=== PATIENT | female | born 1985 | race Caucasian/White ===

== ENCOUNTER 2017-04-12 05:10 | Emergency (ER) | payer OTHER | END 2017-04-12 07:28 | disposition home or self-care (01) | LOC: ER 05:10 | DX: S16.1XXA Strain of muscle, fascia and tendon at neck level, initial encounter (principal); F41.9 Anxiety disorder, unspecified; Z90.49 Acquired absence of other specified parts of digestive tract; Z91.018 Allergy to other foods; X58.XXXA Exposure to other specified factors, initial encounter; Y93.E1 Activity, personal bathing and showering ==